=== PATIENT | female | born 1965 | race Caucasian/White ===

== ENCOUNTER 2017-06-05 16:46 | Inpatient (IN) | payer BC ==
[~2017-06-05] VITALS: Ht 162.6 cm; Wt 97.6 kg
[2017-06-05] MEDS: SODIUM CHLORIDE 0.9% 250ML IRRIG IR SCH
--- OUTSIDE RECORDS SUMMARY | 2017-06-05 18:29 | XMS REPORT | Clinical Summary ---
Author Author [facility] Organization [facility] Address Unknown Phone Unavailable Care Team Providers [facility] [employer] Name Role Phone Asked, Pcp PCP Unavailable Allergies No Known Allergies Current Medications No known medications Active Problems Problem Noted Date Small bowel obstruction 06/05/2017 Encounters Date Type Specialty Care Team Description 06/05/2017 Hospital Emergency Medicine Kishore Osborn MD Small bowel obstruction Encounter Yinka Kc DO (Primary Dx); Abdominal pain, unspecified abdominal location; Diarrhea, unspecified type after 06/04/2016 Social History Tobacco Use Types Packs/Day Years Used Date Never Smoker Smokeless Tobacco: Never Used Alcohol Use Drinks/Week oz/Week Comments No Sex Assigned at Date Recorded Not on file Last Filed Vital Signs Vital Sign Reading Time Taken Blood Pressure 123/72 06/05/2017 5:49 PM CDT Pulse 72 06/05/2017 5:49 PM CDT Temperature 37.6 C (99.6 F) 06/05/2017 5:49 PM CDT Respiratory Rate 18 06/05/2017 5:49 PM CDT Oxygen Saturation 94% 06/05/2017 5:49 PM CDT Inhaled Oxygen - - Concentration Weight 90.7 kg (200 lb) 06/05/2017 10:11 AM CDT Height 162.6 cm (5' 4") 06/05/2017 10:11 AM CDT Body Mass Index 34.33 06/05/2017 10:11 AM CDT Plan of Treatment Health Maintenance Due Date Last Done Comments PAP SMEAR 10/30/1987 COLONOSCOPY 2016 MAMMOGRAM 2016 INFLUENZA VACCINE 09/19/2017 Results * CT Abdomen Pelvis W Contrast (06/05/2017 11:46 AM) Specimen Performing Laboratory [facility] [address] [place] [address] Narrative EXAMINATION:CT ABDOMEN PELVIS W CONTRAST CLINICAL HISTORY: 51 yearsFemale epigastric and diffuse abd pain TECHNIQUE: Multiple axial images of the abdomen and pelvis were obtained following intravenous administration of iodinated contrast. Sagittal and coronal computerized reformatted images were also obtained. CT imaging was performed with iterative reconstruction techniques and/or automated exposure control to reduce radiation dose. COMPARISON:None. Findings: The lung bases demonstrate mild diffuse interstitial changes. The liver demonstrates changes of diffuse fatty infiltration. The spleen is normal in size although borderline measuring just under 13 cm. The adrenal glands and pancreas appear within normal limits. The gallbladder is not visualized apparently has been removed correlational clinical findings is needed. The kidneys are not obstructed no calculi are identified There is a moderate degree of small bowel distention with fluid extending several central small bowel loops and a transition zone in the mid pelvis. The degree of obstruction is moderate. The distal small bowel is patent as is the colon. No additional findings of significance are visualized. There is sclerosis of the sacroiliac joints on both sides IMPRESSION: 1. Diffuse fatty infiltration of the liver. 2. Spleen size 3. Moderate small bowel obstruction with kinking of bowel loops and apparent transition zone in the mid pelvis with normal caliber distal loops. Mild thickening of small bowel is present. 4. Small volume of free fluid in the cul-de-sac [id number] Procedure Note Hm Interface, Radiology Results Incoming - 06/05/2017 12:08 PM CDT EXAMINATION: CT ABDOMEN PELVIS W CONTRAST CLINICAL HISTORY: 51 yearsFemale epigastric and diffuse abd pain TECHNIQUE: Multiple axial images of the abdomen and pelvis were obtained following intravenous administration of iodinated contrast. Sagittal and coronal computerized reformatted images were also obtained. CT imaging was performed with iterative reconstruction techniques and/or automated exposure control to reduce radiation dose. COMPARISON: None. Findings: The lung bases demonstrate mild diffuse interstitial changes. The liver demonstrates changes of diffuse fatty infiltration. The spleen is normal in size although borderline measuring just under 13 cm. The adrenal glands and pancreas appear within normal limits. The gallbladder is not visualized apparently has been removed correlational clinical findings is needed. The kidneys are not obstructed no calculi are identified There is a moderate degree of small bowel distention with fluid extending several central small bowel loops and a transition zone in the mid pelvis. The degree of obstruction is moderate. The distal small bowel is patent as is the colon. No additional findings of significance are visualized. There is sclerosis of the sacroiliac joints on both sides IMPRESSION: 1. Diffuse fatty infiltration of the liver. 2. Spleen size 3. Moderate small bowel obstruction with kinking of bowel loops and apparent transition zone in the mid pelvis with normal caliber distal loops. Mild thickening of small bowel is present. 4. Small volume of free fluid in the cul-de-sac [id number] * Urinalysis screen and microscopy, with reflex to culture (06/05/2017 10:58 AM) Component Value Ref Range Specimen site Clean catch Color, UA Yellow Appearance, UA Clear Specific gravity, UA 1.018 1.001 - 1.035 pH, UA 6.0 5.0 - 8.5 Protein, UA Negative Negative Glucose, UA Negative Negative Ketones, UA Trace (A) Negative Bilirubin, UA Negative Negative Blood, UA Moderate (A) Negative Nitrite, UA Negative Negative Urobilinogen, UA 4.0 (A) <2.0 Leukocyte esterase, UA Negative Negative Epithelial cells, UA Many /HPF WBC, UA 11 (H) 0 - 5 /HPF RBC, UA 58 (H) 0 - 5 /HPF Bacteria, UA Trace None seen Yeast, UA None seen Yeast with pseudohyphae, None seen UA Specimen Performing Laboratory Urine [facility] [place] DEPARTMENT OF PATHOLOGY AND GENOMIC MEDICINE [address] [place] [address] * Estimated GFR (06/05/2017 10:24 AM) Component Value Ref Range GFR Non Af Amer >90 mL/min/1.73 m2 GFR Af Amer >90 mL/min/1.73 m2 Comment: Chronic kidney disease: <60 mL/min/1.73m2 Kidney failure: <15 mL/min/1.73m2 The estimated GFR is calculated from the IDMS-traceable Modification of Diet in Renal Disease Equation. The accuracy of the calculation is poor when the creatinine is normal. Calculated values >90 mL/min/1.73m2 are not reported. This equation has not been validated in children (<18 years), women, the elderly (>70 years), or ethnic groups other than Caucasians and Americans. Specimen Performing Laboratory Plasma specimen [facility] [place] DEPARTMENT OF PATHOLOGY AND GENOMIC MEDICINE [address] [address] * CBC with platelet and differential (06/05/2017 10:24 AM) Component Value Ref Range WBC 11.9 (H) 4.2 - 11.0 k/uL RBC 4.81 4.04 - 5.86 m/uL HGB 15.8 (H) 11.5 - 15.3 g/dL HCT 46.4 (H) 34.0 - 45.0 % MCV 96.5 80.0 - 98.0 fL MCH 32.8 27.0 - 34.0 pg MCHC 34.1 31.5 - 36.5 g/dL RDW - SD 45.8 37.0 - 51.0 fL MPV 10.4 7.4 - 10.4 fL Platelet count 198 150 - 400 k/uL Nucleated RBC 0.00 /100 WBC Neutrophils 84.1 (H) 36.0 - 66.0 % Lymphocytes 8.9 (L) 24.0 - 44.0 % Monocytes 5.9 0.0 - 6.0 % Eosinophils 0.3 0.0 - 6.0 % Basophils 0.3 0.0 - 1.2 % Immature granulocytes 0.5 0.0 - 1.0 % Specimen Performing Laboratory Blood [facility] [place] DEPARTMENT OF PATHOLOGY AND GENOMIC MEDICINE [address] [place] [address] * hCG qualitative, serum screen (06/05/2017 10:24 AM) Component Value Ref Range hCG qualitative, serum Negative Comment: The manufacturers stated sensitivity of HcG test for serum is >/=10 mIU/ml and urine is >/=20mIU/ml. Specimen Performing Laboratory Blood [facility] [place] DEPARTMENT OF PATHOLOGY AND GENOMIC MEDICINE [facility] [place] [address] * Lipase level (06/05/2017 10:24 AM) Component Value Ref Range Lipase 39 (L) 65 - 230 U/L Specimen Performing Laboratory Plasma specimen [facility] [place] DEPARTMENT OF PATHOLOGY AND GENOMIC MEDICINE [address] [place] [address] * Comprehensive metabolic panel (06/05/2017 10:24 AM) Component Value Ref Range Sodium 137 135 - 150 mEq/L Potassium 3.4 (L) 3.5 - 5.0 mEq/L Chloride 102 100 - 109 mEq/L CO2 27 24 - 32 mmol/L Anion gap 8 7 - 15 mEq/L Comment: Starting from May , anion gap calculation no longer incorporates potassium. Please note the change. BUN 5 (L) 7 - 18 mg/dL Creatinine 0.5 (L) 0.8 - 1.5 mg/dL Glucose 119 (H) 65 - 100 mg/dL Calcium 8.6 8.6 - 10.7 mg/dL Protein 7.0 6.3 - 8.2 g/dL Albumin 3.2 3.2 - 5.0 g/dL A/G ratio 0.8 0.7 - 3.8 Alkaline phosphatase 108 30 - 120 U/L AST 36 15 - 37 U/L ALT 37 30 - 65 U/L Total bilirubin 1.1 0.2 - 1.2 mg/dL Specimen Performing Laboratory Plasma specimen [facility] [place] DEPARTMENT OF PATHOLOGY AND GENOMIC MEDICINE [address] [place] [address] after 06/04/2016 Insurance Payer Benefit Subscriber ID Type Phone Address Plan / Group [employer]BS EXCHANGE BLUE xxxxxxxxxxxx [place] [address]
[2017-06-05 19:45] VITALS: BP 124/65
[2017-06-05 20:43] LABS: BASOPHILS % 0.2 % (0.0-1.0); EOSINOPHILS # (AUTO) 0.1 (0.0-0.4); EOSINOPHILS % 0.7 % (0.0-6.0); HEMATOCRIT 41.2 % (34.2-44.1); LYMPHOCYTES # (AUTO) 1.1 (1.0-3.2); LYMPHOCYTES % 11.2 % (18.0-39.1); MEAN CORPUSCULAR HEMOGLOBIN 32.9 pg (28-32); MEAN CORPUSCULAR VOLUME 96.9 fL (81-99); MONOCYTES # (AUTO) 0.8 (0.2-0.8); MONOCYTES % 8.2 % (4.4-11.3); NEUTROPHILS # (AUTO) 7.9 (2.1-6.9); NEUTROPHILS % 79.4 % (38.7-80.0); PLATELET COUNT 166 x10e3/uL (140-360); RED BLOOD COUNT 4.25 x10e6/uL (3.6-5.1); RED CELL DISTRIBUTION WIDTH 13.2 % (11.7-14.4)
[2017-06-05 21:04] LABS: ALANINE AMINOTRANSFERASE 78 IU/L (0-55); ALBUMIN 2.9 g/dL (3.5-5.0); ALBUMIN/GLOBULIN RATIO 0.9 (0.8-2.0); ALKALINE PHOSPHATASE 98 IU/L (40-150); BLOOD UREA NITROGEN 6 mg/dL (7-26); BUN/CREATININE RATIO 10 (6-25); CALCIUM 8.6 mg/dL (8.4-10.2); CARBON DIOXIDE 27 mmol/L (22-29); CHLORIDE 104 mmol/L (98-107); EST GLOMERULAR FILTRATION RATE > 60 ML/MIN (60-); GLUCOSE 82 mg/dL (74-118); SODIUM 141 mmol/L (136-145)
[2017-06-05] MEDS: MORPHINE SULFATE 2 MG/ML SYR IV PRN (21:11)
[2017-06-05] MEDS: DEXTROSE 5%/0.45% SOD CHL 1,000 ML IV SCH (21:11)
[2017-06-05] MEDS: FAMOTIDINE 20 MG/2 ML VIAL IV SCH (21:11)
[2017-06-05 23:10] VITALS: BP 124/65
[2017-06-05 23:34] VITALS: BP 124/65
[2017-06-06] VITALS (7 sets, daily range): BP systolic 133–157; BP diastolic 65–77
--- NOTE | 2017-06-06 00:44 | Diagnostic Imaging Report ---
ABDOMEN-1VIEW (KUB) Clinical history: \S\CONFIRM NGT PLACEMENT \[id number] \S\230 Technique: AP view abdomen Comparison: None Findings: Right lateral abdomen inferior pelvis are excluded from view. NG tube is coiled within the stomach with tip overlying the gastric antrum. Bowel gas pattern suboptimally assessed; there are several prominent small bowel loops with gas also noted in nondilated colon. Impression: NG tube terminates over the gastric antrum. Signed by: Dr Analilia Clifford MD on 06/06/2017 12:41 AM
[2017-06-06] MEDS: SODIUM CHLORIDE 0.9% 250ML IRRIG IR SCH ×4 (02:02→13:30)
[2017-06-06] MEDS: MORPHINE SULFATE 2 MG/ML SYR IV PRN ×5 (02:02→22:42)
[2017-06-06 06:55] LABS: BASOPHILS % 0.3 % (0.0-1.0); EOSINOPHILS # (AUTO) 0.1 (0.0-0.4); EOSINOPHILS % 1.1 % (0.0-6.0); HEMATOCRIT 42.5 % (34.2-44.1); LYMPHOCYTES # (AUTO) 1.3 (1.0-3.2); MEAN CORPUSCULAR HEMOGLOBIN 32.9 pg (28-32); MEAN CORPUSCULAR HGB CONC 32.9 g/dL (31-35); MEAN CORPUSCULAR VOLUME 99.8 fL (81-99); MONOCYTES # (AUTO) 0.8 (0.2-0.8); MONOCYTES % 8.6 % (4.4-11.3); NEUTROPHILS # (AUTO) 7.1 (2.1-6.9); NEUTROPHILS % 75.6 % (38.7-80.0); PLATELET COUNT 170 x10e3/uL (140-360); RED BLOOD COUNT 4.26 x10e6/uL (3.6-5.1); RED CELL DISTRIBUTION WIDTH 13.2 % (11.7-14.4)
[2017-06-06 07:08] LABS: INR 1.22; PROTHROMBIN TIME 14.5 seconds (11.9-14.5)
[2017-06-06 07:26] LABS: ALANINE AMINOTRANSFERASE 75 IU/L (0-55); ALBUMIN 2.8 g/dL (3.5-5.0); ALBUMIN/GLOBULIN RATIO 0.9 (0.8-2.0); ALKALINE PHOSPHATASE 96 IU/L (40-150); ANION GAP 10.4 mmol/L (8-16); BLOOD UREA NITROGEN 6 mg/dL (7-26); BUN/CREATININE RATIO 9 (6-25); CALCIUM 8.5 mg/dL (8.4-10.2); CARBON DIOXIDE 31 mmol/L (22-29); CHLORIDE 99 mmol/L (98-107); CREATININE, SERUM 0.66 mg/dL (0.57-1.11); EST GLOMERULAR FILTRATION RATE > 60 ML/MIN (60-); GLUCOSE 103 mg/dL (74-118); POTASSIUM 3.4 mmol/L (3.5-5.1); SODIUM 137 mmol/L (136-145)
[2017-06-06] MEDS: DEXTROSE 5%/0.45% SOD CHL 1,000 ML IV SCH ×2 (09:25→22:10)
[2017-06-06] MEDS: FAMOTIDINE 20 MG/2 ML VIAL IV SCH ×2 (09:25→21:07)
--- NOTE | 2017-06-06 10:05 | Diagnostic Imaging Report ---
PROCEDURE:ABDOMEN COMP INCL UPR OR DECUB TECHNIQUE: INDICATION:Small bowel obstruction COMPARISON:None. FINDINGS:Enteric feeding catheter is present with the tip projecting over the expected region of the transverse portion of the duodenum. No air-fluid levels or pneumoperitoneum. Air is present in the colon and rectum. No abnormal calcifications. CONCLUSION:No acute radiographic abnormality. Dictated by: Darren Oneal M.D. on 06/06/2017 at 10:05 Electronically approved by: Darren Oneal M.D. on 06/06/2017 at 10:05
[2017-06-06] MEDS: ONDANSETRON HCL INJ 2 MG/ML VIAL IV PRN ×2 (12:24→18:35)
[2017-06-06] MEDS ORDERED: MAGNESIUM SULFATE 2GM/50ML 50 ML IV ONE (15:30)
[2017-06-06] MEDS ORDERED: POTASSIUM CHLORIDE 20MEQ/100ML 200 ML IV ONE (15:30)
[2017-06-06] MEDS: POTASSIUM CHLORIDE 20MEQ/100ML 200 ML IV ONE ×2 (17:35→20:23)
[2017-06-06] MEDS ORDERED: SODIUM CHLORIDE 0.9% 250ML 250 ML ONE (20:09)
[2017-06-06] MEDS: HEPARIN SOD (PORCINE) 5,000 UNIT/ML VIAL SC SCH (21:00)
--- NOTE | 2017-06-06 23:45 | Consultation ---
DATE OF CONSULTATION: June 06, 2017 Patient is a 51-year-old female who presents with complaints of abdominal pain. Says the pain started a couple days ago, she has associated nausea. No vomiting and also diarrhea. Says she thinks it started after she ate some fish that might have been bad. Patient has had a previous section and cholecystectomy. She went to the emergency room where CT of the abdomen suggested possible small-bowel obstruction. Patient says her pain is less at this time. She has not had a bowel movement today and is not passing flatus. PAST MEDICAL HISTORY: Otherwise unremarkable. SURGERIES: As stated above. ALLERGIES: SHE HAS NO ALLERGIES. CURRENT MEDICATIONS: None. FAMILY HISTORY: Noncontributory. SOCIAL HISTORY: Patient is . Does not smoke cigarettes or drink alcohol. REVIEW OF SYSTEMS: As stated above. She has not had any fever or weight loss. She did have some diarrhea. PHYSICAL EXAMINATION GENERAL: The patient is awake and alert and in no distress. VITAL SIGNS: Essentially normal. HEENT: Reveals no scleral icterus. NECK: Has no masses. LUNGS: Equal breath sounds are clear bilaterally. CARDIAC: Regular rate and rhythm. Normal S1 and S2 without murmur, S3 or S4. There is no jugular venous distention. ABDOMEN: Has slight diffuse tenderness. It is soft. There is no distention. There a healed lower midline wound. There is no mass. There were no signs of peritonitis. EXTREMITIES: Have no edema. Pulses are palpable. NEUROLOGIC: Intact. LAB TESTS: White blood count is normal. Hemoglobin and hematocrit are normal. Chemistries with slightly elevated liver function tests, otherwise are normal. ASSESSMENT: This is a 51-year-old female with abdominal pain, although computerized tomography scan suggests small-bowel obstruction. Clinically, it is more suggestive of acute gastroenteritis. PLAN: Repeat abdominal x-ray today. If the x-ray is improved, likely nasogastric tube can be removed. She may be started on a liquid diet. There are no findings that require immediate surgical intervention. Thank you for asking me to see Ms. Houston. Job#: [id number] MT
[2017-06-07] VITALS: BP 134/69
[2017-06-07] MEDS ORDERED: SODIUM CHLORIDE 0.9% 250ML 250 ML ONE (01:52)
[2017-06-07] MEDS: MORPHINE SULFATE 2 MG/ML SYR IV PRN ×3 (03:34→16:57)
[2017-06-07 04:00] VITALS: BP 125/58
[2017-06-07] MEDS: FAMOTIDINE 20 MG/2 ML VIAL IV SCH (09:00)
[2017-06-07] MEDS: HEPARIN SOD (PORCINE) 5,000 UNIT/ML VIAL SC SCH (09:00)
[2017-06-07 09:29] VITALS: BP 148/70
[2017-06-07] MEDS: ONDANSETRON HCL INJ 2 MG/ML VIAL IV PRN ×2 (09:48→16:57)
[2017-06-07] MEDS: DEXTROSE 5%/0.45% SOD CHL 1,000 ML IV SCH (09:48)
[2017-06-07 12:34] VITALS: BP 150/75
--- NOTE | 2017-06-07 16:00 | Discharge Summary ---
PRIMARY CARE DOCTOR: Unknown FINAL DIAGNOSIS: Partial small-bowel obstruction. CONSULTANTS: Dr. Melvin, surgery. PROCEDURES/STUDIES PERFORMED: Nasogastric tube placement. HISTORY: Per [facility] and P. HOSPITAL COURSE: The patient was admitted. NG tube was put in. The patient was kept n.p.o. She improved. Repeat KUB was much better. Therefore, NG tube was removed. The patient was started on a clear liquid diet. Currently, she tolerated full liquid. I had discussed the case with Dr. Melvin today. Will give her an early dinner tray with soft diet. If she still does okay, then she may be discharged home later today. The patient was seen and examined today. CONDITION ON DISCHARGE: Stable. DISCHARGE MEDICATIONS: Please see medication reconciliation form. YUNG WESTON M.D. Job#: [id number] HEATHER
[2017-06-07 16:29] VITALS: BP 138/79
== END 2017-06-07 17:49 | disposition home or self-care (01) | DRG 999 ==
LOC: MED/SURG 18:27 → OBSVTOIN 06-06 11:11
PROVIDERS: ADMIT Internal Medicine; ATTEND Internal Medicine
DX: K56.600 Partial intestinal obstruction, unspecified as to cause (principal); E83.42 Hypomagnesemia; E87.6 Hypokalemia
CPT/HCPCS: 36415; 74018; 80053; 85025; 85610; 85730; G0378; J1644; J2270; J2405; J3480; J7050

== ENCOUNTER 2021-08-29 08:26 | Observation (INO) | payer BC ==
[~2021-08-29 08:26] MED LIST: CELEBREX200 MG PO; CELECOXIB 200 MG CAP ONE; DEXAMETHASONE SOD PHOS 10 MG/1 ML VIAL ONE; GABAPENTIN 300 MG CAP ONE; ROPIVACAINE 246.25 MG, EPINEPHRINE HCL 1:1000 1ML 0.5 MG, CLONIDINE HCL 0.08 MG, KETORO... INJ ONE
[2021-08-29] MEDS ORDERED: Vancomycin IV 1,000 MG ONE (10:44)
[2021-08-29] MEDS ORDERED: SODIUM CHLORIDE 0.9% 250ML 250 ML ONE (10:45)
[2021-08-29] MEDS ORDERED: TRANEXAMIC ACID 20 ML ONE (10:45)
[2021-08-29] MEDS ORDERED: DOCUSATE SODIUM 100 MG CAP PO PRN (13:00)
[2021-08-29] MEDS ORDERED: HYDROCODONE/APAP 5MG-325MG TAB PO PRN (13:00)
[2021-08-29] MEDS ORDERED: KETOROLAC TROMETHAMINE 30 MG/ML VIAL IV PRN (13:00)
[2021-08-29] MEDS ORDERED: ZOLPIDEM TARTRATE 5 MG TAB PO PRN (13:00)
[2021-08-29] MEDS ORDERED: SODIUM CHLORIDE 0.9% 1000ML 1,000 ML IV SCH (13:00)
[2021-08-29] MEDS ORDERED: ONDANSETRON HCL INJ 2MG/ML 2ML 2 MG/ML VIAL IV PRN (13:00)
[2021-08-29] MEDS ORDERED: ACETAMINOPHEN 650 MG SUPP PR PRN (13:00)
[2021-08-29] MEDS ORDERED: DIPHENHYDRAMINE HCL INJ 50 MG/ML VIAL IV PRN (13:00)
[2021-08-29 15:06] VITALS: BP 132/72
[2021-08-29 15:09] VITALS: BP 132/72
[2021-08-29] MEDS: HYDROCODONE/APAP 7.5MG-325MG 1 EA TAB PO PRN ×2 (15:25→18:54)
[2021-08-29] MEDS ORDERED: CELECOXIB 100 MG CAP PO SCH (17:00)
[2021-08-29] MEDS ORDERED: ASPIRIN 325 MG TAB PO SCH (17:00)
[2021-08-29] MEDS ORDERED: ACETAMINOPHEN 1000 MG/100 ML IV PRN (18:00)
[2021-08-30] MEDS ORDERED: CELECOXIB 200 MG CAP PO SCH (09:00)
== END 2021-08-29 18:50 | disposition home health service (06) ==
LOC: OR 08:26 → PACU V 13:16 → MED/SURG 14:35
PROVIDERS: ADMIT Specialist; ATTEND Specialist
DX: M17.11 Unilateral primary osteoarthritis, right knee (principal); Z01.818 Encounter for other preprocedural examination; Z20.822 Contact with and (suspected) exposure to COVID-19
CPT/HCPCS: 0223U; 27447; 36415; 73560; 86850; 86900; 86920 ×2; 97110; 97116; 97161; 97530; C1713; G0378; J0171; J0690; J1100; J1885; J2795; J3370; J7050; C1776